=== PATIENT | male | born 1990 | race Caucasian/White ===

== ENCOUNTER 2022-12-02 11:43 | Emergency (ER) | payer MEDICAID, SELFPAY ==
[2022-12-02 11:44] VITALS: BP 163/111; PULSE 78; RESP 18; TEMP 36.4; O2SAT 98; BMI 52.9
--- NOTE | 2022-12-02 11:53 | EX.ED.DYSGE1 ---
HPI <EDDA Plascencia - Last Filed: 12/02/22 12:01> History of Present Illness Chief Complaint: Dental Narrative Narrative: Patient is a 32-year-old male with history of bleed disorder who presents the emergency department for left lower jaw pain has been ongoing for the last 2 weeks. Patient states the pain is out of control the last 2 days. He used Tylenol, Orajel with no relief. He cannot take any NSAIDs secondary to the bleeding disorder. Patient does have a dental appointment for further evaluation. Patient denies any fever or chills. Patient denies any drainage noted. He does use cigarettes. <Dr. Katey Rao DO - Last Filed: 12/02/22 12:01> History of Present Illness Detail of Chief Complaint: Dental pain PFSH <EDDA Plascencia - Last Filed: 12/02/22 12:01> [facility] Medical History (Updated 12/02/22 @ 11:58 by EDDA Plascencia) Acquired von Willebrand disease ADHD Alcohol abuse Bipolar disorder Depression Hypertension Home Medications oxycodone-acetaminophen 5 mg-325 mg tablet (Percocet) 1 tab PO Q8H PRN pain 2 days #7 tabs 12/02/22 [Rx Last Taken Unknown] penicillin V potassium 500 mg tablet 500 mg PO 4X/DAY #28 tabs 12/02/22 [Rx Last Taken Unknown] Allergy/AdvReac Type Severity Reaction Status Date / Time aspirin AdvReac Other Verified 01/10/14 23:36 ibuprofen AdvReac Other Verified 01/10/14 23:36 NSAIDS (Non-Steroidal AdvReac Other Verified 12/02/22 11:45 Anti-Inflamma Surgical History no surgical history Social History Smoking Status: Current every day smoker tobacco type: cigarettes ROS <EDDA Plascencia - Last Filed: 12/02/22 12:01> ROS ED ROS Narrative Constitutional: Negative for fever, chills, weight loss, weakness Eyes: Negative for vision loss, vision change, double vision ENT: Negative for any sore throat, ear pain, congestion. Positive for left lower jaw pain Cardiovascular: Negative for any chest pain, tightness, palpitations Respiratory: Negative for any cough, sputum production, hemoptysis, dyspnea, dyspnea on exertion, orthopnea Gastrointestinal: Negative for any abdominal pain, nausea, vomiting, diarrhea, constipation, blood in stool, blood in vomit : Negative for any urinary frequency, dysuria, retention, blood in urine Muscle skeletal: Negative for any muscle joint pain, stiffness, myalgias, arthralgias, neck pain, back pain Neurological: Negative for any headache, syncope, numbness or tingling, dizziness Skin: Negative for any rashes, lumps, itching, abrasions, lacerations Psychiatric: Negative for any depression, anxiety, stress, suicidal ideation, homicidal ideation Hematologic: Negative for any easy bruising, excessive bruising, easy bleeding Allergies: Negative for any eczema, hives, rash EXAM <EDDA Plascencia - Last Filed: 12/02/22 12:01> Physical Exam Narrative Exam Narrative: Vital signs reviewed. HEET: Head normocephalic atraumatic, TMs clear bilaterally. Posterior pharynx is clear, moist mucous membranes. Nares clear bilaterally. Patient does have poor dentition, patient's left lower jaw such as the premolar as well as the molar were painful on palpation however there is no cracking, there was no fluctuance, no evidence of any deep tissue infection. There is no evidence of trismus. Patient did have multiple areas where he did have teeth extracted. Neck: Supple with no lymphadenopathy or tenderness. No signs of meningismus, negative jolt sign. Cardiac: Regular rate and rhythm no murmurs gallops or rubs, equal peripheral pulses bilaterally. Respiratory: Lungs clear to auscultation bilaterally. No chest tenderness. Abdomen: Soft, nontender, nondistended. No abdominal bruit or pulsatile masses. No hepatosplenomegaly Extremities: No peripheral edema, no signs of gross trauma or deformity. Active full range of motion of all extremities. Neuro: Cranial nerves II through XII intact, no focal neurological deficits. Skin: Clean dry and intact with no rash, purpura, petechiae, vesicles or pustules. Backs/flank: No CVA tenderness, no midline spinal tenderness, no deformity. Psych: Normal mood and affect. No SI, HI or acute psychosis. Const Vital Signs: 12/02/22 11:44 Temperature 97.5 F L Temperature Source Temporal Pulse Rate 78 Respiratory Rate 18 Blood Pressure 163/111 H Blood Pressure Mean 128 Pulse Ox 98 Oxygen Delivery Method Room Air <Dr. Katey Rao DO - Last Filed: 12/02/22 12:01> Physical Exam Const Vital Signs: 12/02/22 11:44 Temperature 97.5 F L Temperature Source Temporal Pulse Rate 78 Respiratory Rate 18 Blood Pressure 163/111 H Blood Pressure Mean 128 Pulse Ox 98 Oxygen Delivery Method Room Air [facility] <Isauro LakeEDDA herrera - Last Filed: 12/02/22 12:01> [facility] Treatment and Re-Evaluation :: Patient appears generally well, he is in slight discomfort secondary to left lower jaw pain. Patient vital signs are stable, he looks nontoxic. Patient presents to the emergency department for 2 weeks of ongoing left lower jaw pain. He does have an appointment with a dentist in 2 days. There is no evidence of any abscess formation, there is nothing to drain. No evidence of any Ludwigs angina, deep tissue infection. He will be treated with penicillin, as well as oxycodone here. He will be given a short course of pain medicine as well as antibiotics. He is instructed to keep his appointment on , he was given return precautions. All questions answered. I was able speak with the patient's as well. He denies any other questions <Dr. Katey Rao DO - Last Filed: 12/02/22 12:01> [facility] Narrative Medical decision making narrative: I have personally performed a face to face assessment of the patient and have reviewed the ROJELIO Note. I performed a substantive portion of the visit including all aspects of the following. My bah findings include: History is [patient with dental pain off and on for several weeks. Has been using Orajel with success. Increased pain for the last several days to the lower teeth. Denies fevers. Denies chills or sweats. He walked in [facility] today and they told him he could not see him today but he has an appointment in 2 days.] Exam is [HEENT-PERRLA, EOMI. Cranial nerves II through XII grossly intact. TMs clear. Mucous membranes moist. No adenopathy. Dentition-patient has slight tenderness diffusely over the lower molars on the left. No gingival erythema or abscess noted. No facial erythema or cellulitis. No trismus on exam. Cardiovascular-regular rate and rhythm without murmur or ectopy Lungs-clear to auscultation, chest wall stable without crepitus or subcu emphysema Abdomen-normoactive bowel sounds, soft, nontender, no rebound or rigidity, no peritoneal signs. Extremities-intact ?4, normal range of motion, normal pulses, atraumatic] Medical Decison Making [patient will be treated with penicillin and few [place] for pain. He is advised to keep his appointment with his dentist.] Other additions or changes: [None] Discharge Plan Triage Chief Complaint: Dental ED Midlevel Provider: Isauro Moa ED Provider: Katey Rao Dx/Rx/DC Orders Clinical Impression: Dental abscess Instructions: ED Dental Abscess Prescriptions: New oxycodone-acetaminophen [Percocet] 5-325 mg tablet 1 tab PO Q8H PRN (Reason: pain) 2 Days Qty: 7 0RF penicillin V potassium 500 mg tablet 500 mg PO 4X/DAY Qty: 28 0RF Primary Care Provider: Care Physician,No Primary Referrals: Care Physician,No Primary [Primary Care Provider] - Activity Restrictions/Additional Instructions: Please ensure that you follow-up in 2 days. Take antibiotics until finished. Disposition Disposition: Home, Self Care
[2022-12-02] MEDS: oxyCODONE 5 MG Tablet PO (11:58)
[2022-12-02] MEDS: Penicillin Vk 250 MG Tablet 500 MG PO (11:58)
== END 2022-12-02 12:32 | disposition home or self-care (01) ==
LOC: ED 12:22
PROVIDERS: Emergency Provider Emergency Medicine; PCP Nurse Practitioner Primary Care; Visit Provider Emergency Medicine
DX: K04.7 Periapical abscess without sinus (principal); F17.210 Nicotine dependence, cigarettes, uncomplicated
CPT/HCPCS: 99282